=== PATIENT | male | born 1945 | race Caucasian/White ===

== ENCOUNTER 2017-11-02 14:42 | Inpatient (IN) ==
[2017-11-02] MEDS ORDERED: ENOXAPARIN 100 MG/ML SYRINGE SUBCUT STA (15:13)
[2017-11-02] MEDS ORDERED: ENOXAPARIN 100 MG/ML SYRINGE SUBCUT ONE (15:16)
[2017-11-02] MEDS ORDERED: NITROGLYCERIN DRIP 50 MG/250 ML BOTTLE IV SCH (15:30)
[2017-11-02 16:06] LABS: Basophils # 0.1 10*3/uL (0.0-0.2); Basophils % 0.6 % (0.0-0.8); Eosinophils # 1.2 10*3/uL (0.0-0.87); Eosinophils % 11.8 % (0.00-10.9); Hematocrit 39.4 VOL% (42.0-52.0); Hemoglobin 13.8 GM/DL (14.0-18.0); Immature Granulocytes % 0.6 %; Immature Granulocytes Absolute 0.06 #; Lymphocytes # 2.9 10*3/uL (1.4-4.0); Lymphocytes % 27.8 % (21.2-54.2); Mean Corpuscular Hemoglobin 30 PG (27-34); Mean Corpuscular Volume 85.3 FL (87-102); Mean Platelet Volume 10.3 FL (9.6-12.0); Monocytes # 0.6 10*3/uL (0.11-0.8); Neutrophils # 5.5 10*3/uL (1.4-7.4); Neutrophils % 53.2 % (38.7-73.9); Platelet Count 150 T/CUMM (130-400); Red Blood Count 4.62 MC/CUMM (3.8-5.5); Red Cell Distribution Width 12.9 % (9.3-17.3); White Blood Count 10.3 T/CUMM (4-12)
[2017-11-02 16:17] LABS: INR 1.1; PT Patient Result 11.1 SECS
[2017-11-02 16:32] LABS: Albumin 3.8 G/DL (3.4-5.0); Bilirubin,Total 0.5 MG/DL (0.2-1.0); Calcium 10.2 MG/DL (8.5-10.1); Osmolality,Calculated 284.5 MOS/KG (273-304); Potassium 4.6 MMOL/L (3.5-5.1); Total Protein 7.2 G/DL (6.4-8.3)
[2017-11-02 17:10] LABS: Eosinophils 10 % (0-10); Hypochromasia 1+; Lymphocytes 29 % (20-55); Platelet Estimate Adequate; Segmented Neutrophils 55 % (50-85); Total Cells Counted 100
[2017-11-02] MEDS ORDERED: MAGNESIUM SULF RIDER 4 GM in PREMIX 1 EACH IV PRN (18:15)
[2017-11-02] MEDS ORDERED: MAGNESIUM SULF RIDER 2 GM in PREMIX 1 EACH IV PRN (18:15)
[2017-11-02] MEDS ORDERED: NITROGLYCERIN 2% OINT 1 INCH/GM PACK TOP ONE (19:13)
[2017-11-02] MEDS ORDERED: MEPERIDINE 25 MG/1 ML VIAL IM PRN (21:41)
[2017-11-02 21:57] LABS: Troponin I Only < 0.015 NG/ML (0.00-0.045)
[2017-11-03] MEDS: NITROGLYCERIN 2% OINT 1 INCH/GM PACK TOP SCH ×4 (00:30→19:02)
[2017-11-03 02:06] LABS: Troponin I Only < 0.015 NG/ML (0.00-0.045)
[2017-11-03] MEDS ORDERED: ENOXAPARIN 80 MG/0.8 ML SYRINGE SUBCUT SCH (03:30)
[2017-11-03] MEDS ORDERED: ONDANSETRON 4 MG/2 ML VIAL IV PRN (10:20)
[2017-11-03] MEDS ORDERED: MORPHINE 2 MG/1 ML SYRINGE IV ONE (10:30)
[2017-11-03] MEDS ORDERED: MORPHINE 2 MG/1 ML SYRINGE ONE (10:32)
[2017-11-03] MEDS ORDERED: POTASSIUM CHLORIDE RIDER 10 MEQ in PREMIX 1 EACH IV PRN (10:56)
[2017-11-03] MEDS ORDERED: MAGNESIUM SULF RIDER 2 GM in PREMIX 1 EACH IV PRN (10:56)
[2017-11-03] MEDS ORDERED: diphenhydrAMINE CAP 25 MG CAPSULE PO ONE (10:56)
[2017-11-03] MEDS ORDERED: DIAZEPAM 5 MG TABLET PO ONE (10:56)
[2017-11-03] MEDS ORDERED: ASPIRIN 325 MG TABLET PO ONE (10:56)
[2017-11-03] MEDS ORDERED: MIDAZOLAM 2 MG/2 ML VIAL ONE (11:00)
[2017-11-03] MEDS ORDERED: SODIUM CHLORIDE 0.9% 1,000 ML IV SCH ×2 (11:00→12:30)
[2017-11-03] MEDS ORDERED: fentaNYL 100 MCG/2 ML VIAL ONE (11:00)
[2017-11-03] MEDS ORDERED: LIDOCAINE 1% 20 ML VIAL ONE (11:00)
[2017-11-03] MEDS ORDERED: hydrALAZINE 20 MG/1 ML VIAL ONE (11:23)
[2017-11-03] MEDS ORDERED: TIROFIBAN 5,000 MCG/100 ML PREMIX IV ONE (11:48)
[2017-11-03] MEDS ORDERED: TIROFIBAN 5,000 MCG/100 ML PREMIX IV SCH (11:55)
[2017-11-03] MEDS ORDERED: CLOPIDOGREL 300 MG TABLET ONE (12:05)
[2017-11-03] MEDS ORDERED: GLUCAGON 1 MG VIAL IM PRN (12:11)
[2017-11-03] MEDS ORDERED: DEXTROSE 50% 25 GM/50 ML VIAL IV PRN (12:11)
[2017-11-03] MEDS ORDERED: ZALEPLON 5 MG CAPSULE PO PRN (12:11)
[2017-11-03] MEDS ORDERED: cloNIDine 0.1 MG TABLET PO PRN (12:16)
[2017-11-03] MEDS ORDERED: ONDANSETRON 4 MG/2 ML VIAL IV ONE (12:22)
[2017-11-03] MEDS ORDERED: PANTOPRAZOLE 40 MG TABLET PO SCH (12:30)
[2017-11-03] MEDS ORDERED: PROMETHAZINE 25 MG TABLET PO ONE (13:52)
[2017-11-03] MEDS ORDERED: PROMETHAZINE 25 MG TABLET PO PRN (17:15)
[2017-11-03] MEDS ORDERED: PROMETHAZINE 25 MG SUPP RECTAL PRN (17:16)
[2017-11-03] MEDS ORDERED: ALUM/MAG/SIMETH/LIDO VISC 1:1 30 ML BOTTLE PO PRN (17:21)
[2017-11-03] MEDS ORDERED: LORazepam 2 MG/1 ML VIAL IV PRN (17:29)
[2017-11-03] MEDS: MEMANTINE 10 MG TABLET PO SCH ×2 (18:08→21:54)
[2017-11-03] MEDS: INSULIN REGULAR 100 UNIT/ML SUBCUT SCH ×2 (18:08→21:54)
[2017-11-03] MEDS ORDERED: ROSUVASTATIN 20 MG TABLET PO SCH (21:00)
[2017-11-03] MEDS: CARVEDILOL 25 MG TABLET PO SCH (21:54)
[2017-11-03] MEDS: FUROSEMIDE 40 MG TABLET PO SCH (21:54)
[2017-11-03] MEDS: PANTOPRAZOLE 40 MG TABLET PO SCH (21:54)
[2017-11-03] MEDS ORDERED: LORazepam 0.5 MG TABLET PO PRN (22:00)
[2017-11-04] MEDS: NITROGLYCERIN 2% OINT 1 INCH/GM PACK TOP SCH ×3 (01:11→12:42)
[2017-11-04 05:18] LABS: Basophils % 0.3 % (0.0-0.8); Eosinophils % 0.3 % (0.00-10.9); Hematocrit 37.8 VOL% (42.0-52.0); Hemoglobin 13.5 GM/DL (14.0-18.0); Immature Granulocytes % 0.7 %; Immature Granulocytes Absolute 0.11 #; Lymphocytes # 1.3 10*3/uL (1.4-4.0); Lymphocytes % 8.5 % (21.2-54.2); Mean Corpuscular HGB Conc 35.7 GM/DL (32-36); Mean Corpuscular Hemoglobin 30 PG (27-34); Mean Corpuscular Volume 83.4 FL (87-102); Mean Platelet Volume 10.6 FL (9.6-12.0); Monocytes % 6.6 % (1.7-12.7); Neutrophils # 12.5 10*3/uL (1.4-7.4); Neutrophils % 83.6 % (38.7-73.9); Platelet Count 144 T/CUMM (130-400); Red Blood Count 4.53 MC/CUMM (3.8-5.5); Red Cell Distribution Width 12.7 % (9.3-17.3)
[2017-11-04 05:50] LABS: Blood Urea Nitrogen 16 MG/DL (7-18); Calcium 9.5 MG/DL (8.5-10.1); Cholesterol 211 MG/DL (50-200); Glucose 202 MG/DL (74-106); HDL Cholesterol 37 MG/DL (40-60); Osmolality,Calculated 281.7 MOS/KG (273-304); Potassium 4.5 MMOL/L (3.5-5.1); Sodium 138 MMOL/L (136-145); Triglycerides 263 MG/DL (2-150); VLDL CHOLESTEROL 52.6 MG/DL
[2017-11-04 05:51] LABS: Troponin I Only 0.321 NG/ML (0.00-0.045)
[2017-11-04] MEDS: PANTOPRAZOLE 40 MG TABLET PO SCH (08:39)
[2017-11-04] MEDS: FUROSEMIDE 40 MG TABLET PO SCH (08:40)
[2017-11-04] MEDS: MEMANTINE 10 MG TABLET PO SCH (08:40)
[2017-11-04] MEDS: INSULIN REGULAR 100 UNIT/ML SUBCUT SCH ×3 (08:40→16:33)
[2017-11-04] MEDS: CARVEDILOL 25 MG TABLET PO SCH (08:40)
[2017-11-04] MEDS ORDERED: CLOPIDOGREL 75 MG TABLET PO SCH ×2 (09:00)
[2017-11-04] MEDS ORDERED: ASPIRIN EC 81 MG TABLET PO SCH (09:00)
[2017-11-04] MEDS ORDERED: LISINOPRIL 20 MG TABLET PO SCH (09:00)
[2017-11-04] MEDS ORDERED: DONEPEZIL 10 MG TABLET PO SCH (09:00)
[2017-11-04] MEDS ORDERED: NIACIN ER 500 MG TABLET PO SCH (09:00)
[2017-11-04] MEDS ORDERED: sitaGLIPtin 100 MG TABLET PO SCH (09:00)
[2017-11-04 13:08] VITALS: BP 139/61
== END 2017-11-04 16:25 | disposition home or self-care (01) | DRG 247 ==
LOC: EDUNIT# → EDBD → N.ED 14:42 → N.EDINP 18:15 → N.TELEN 19:18
PROVIDERS: ADMIT Internal Medicine Cardiovascular Disease; ATTEND Internal Medicine Cardiovascular Disease

== ENCOUNTER 2019-06-28 19:57 | Inpatient (IN) ==
[2019-06-28] MEDS ORDERED: INFLUENZA VIRUS VACCINE 0.5 ML SYRINGE IM ONE (21:32)
[2019-06-28] MEDS ORDERED: PNEUMOCOCCAL VACCINE (13 VALENT) 0.5 ML SYRINGE IM ONE (21:33)
[2019-06-28] MEDS ORDERED: ACETAMINOPHEN 325 MG TABLET PO PRN (21:42)
[2019-06-28] MEDS ORDERED: ALBUTEROL 2.5 MG/3 ML NEB RESP TX PRN (21:42)
[2019-06-28] MEDS ORDERED: ONDANSETRON 4 MG/2 ML VIAL IV PRN (21:42)
[2019-06-28 22:38] LABS: Troponin I 4.07 NG/ML (0.00-0.045)
[2019-06-28] MEDS ORDERED: MORPHINE 4 MG/1 ML VIAL IV PRN (22:38)
[2019-06-28] MEDS: LABETALOL 20 MG/4 ML SYRINGE IV PRN (23:11)
[2019-06-28] MEDS ORDERED: GLUCAGON 1 MG VIAL IM PRN (23:15)
[2019-06-28] MEDS ORDERED: DEXTROSE 50% 25 GM/50 ML VIAL IV PRN (23:15)
[2019-06-29 00:57] LABS: CKMB % 4.7 %
[2019-06-29 01:01] LABS: Troponin I 4.35 NG/ML (0.00-0.045)
[2019-06-29 05:32] LABS: Basophils % 0.3 % (0.0-0.8); Eosinophils # 0.3 10*3/uL (0.0-0.87); Eosinophils % 2.5 % (0.00-10.9); Hematocrit 36.6 VOL% (42.0-52.0); Hemoglobin 12.4 GM/DL (14.0-18.0); Immature Granulocytes % 0.6 %; Immature Granulocytes Absolute 0.08 #; Lymphocytes # 1.7 10*3/uL (1.4-4.0); Lymphocytes % 12.5 % (21.2-54.2); Mean Corpuscular HGB Conc 33.9 GM/DL (32-36); Mean Corpuscular Volume 88.6 FL (87-102); Mean Platelet Volume 10.2 FL (9.6-12.0); Monocytes % 7.3 % (1.7-12.7); Neutrophils % 76.8 % (38.7-73.9); Platelet Count 154 T/CUMM (130-400); Red Blood Count 4.13 MC/CUMM (3.8-5.5); Red Cell Distribution Width 13.4 % (9.3-17.3); White Blood Count 13.5 T/CUMM (4-12)
[2019-06-29 05:55] LABS: CKMB % 4.6 %
[2019-06-29 05:56] LABS: Troponin I 3.95 NG/ML (0.00-0.045)
[2019-06-29 05:57] LABS: Albumin 3.1 G/DL (3.4-5.0); Bilirubin,Total 1.2 MG/DL (0.2-1.0); Calcium 10.2 MG/DL (8.5-10.1); Osmolality,Calculated 279.7 MOS/KG (273-304); Total Protein 6.5 G/DL (6.4-8.3)
[2019-06-29] MEDS: cefTRIAXone 1,000 MG in SYRINGE 1 EACH IV SCH (06:15)
[2019-06-29] MEDS: LABETALOL 20 MG/4 ML SYRINGE IV PRN (06:16)
[2019-06-29] MEDS: AZITHROMYCIN INJ 500 MG in SODIUM CHLORIDE 0.9% 250 ML IV SCH (06:21)
[2019-06-29] MEDS: carvediloL 25 MG TABLET PO SCH ×2 (08:11→17:03)
[2019-06-29] MEDS: busPIRone 15 MG TABLET PO SCH ×2 (08:11→21:54)
[2019-06-29] MEDS: FUROSEMIDE 40 MG TABLET PO SCH ×2 (08:11→21:54)
[2019-06-29] MEDS: PANTOPRAZOLE 40 MG TABLET PO SCH (08:11)
[2019-06-29] MEDS: INSULIN REGULAR 100 UNIT/ML SUBCUT SCH ×4 (08:59→22:02)
[2019-06-29] MEDS ORDERED: ASPIRIN EC 325 MG TABLET PO SCH (09:00)
[2019-06-29] MEDS ORDERED: MEMANTINE DONEPEZIL PO SCH (09:00)
[2019-06-29] MEDS: CLOPIDOGREL 75 MG TABLET PO SCH (09:57)
[2019-06-29] MEDS: ENOXAPARIN 100 MG/ML SYRINGE SUBCUT SCH (09:57)
[2019-06-29] MEDS: NIACIN 500 MG TABLET PO SCH (10:01)
[2019-06-29] MEDS ORDERED: NITROGLYCERIN SL 0.4 MG TABLET SL PRN (10:18)
[2019-06-29] MEDS ORDERED: LISINOPRIL 20 MG TABLET PO SCH (10:30)
[2019-06-29] MEDS: NITROGLYCERIN 2% OINT 1 INCH/GM PACK TOP SCH ×2 (10:51→17:03)
[2019-06-29] MEDS ORDERED: amLODIPine 5 MG TABLET PO SCH (11:00)
[2019-06-29] MEDS ORDERED: SIMVASTATIN 10 MG TABLET PO SCH (21:00)
[2019-06-30] MEDS: NITROGLYCERIN 2% OINT 1 INCH/GM PACK TOP SCH ×2 (01:24→06:46)
[2019-06-30 04:49] LABS: Basophils # 0.1 10*3/uL (0.0-0.2); Basophils % 0.5 % (0.0-0.8); Eosinophils # 0.5 10*3/uL (0.0-0.87); Eosinophils % 4.6 % (0.00-10.9); Hemoglobin 11.2 GM/DL (14.0-18.0); Immature Granulocytes % 0.6 %; Immature Granulocytes Absolute 0.06 #; Lymphocytes % 18.5 % (21.2-54.2); Mean Corpuscular HGB Conc 33.9 GM/DL (32-36); Mean Corpuscular Volume 88.2 FL (87-102); Mean Platelet Volume 10.1 FL (9.6-12.0); Neutrophils % 65.8 % (38.7-73.9); Platelet Count 163 T/CUMM (130-400); Red Blood Count 3.74 MC/CUMM (3.8-5.5); White Blood Count 10.8 T/CUMM (4-12)
[2019-06-30 05:10] LABS: Calcium 10.4 MG/DL (8.5-10.1); Osmolality,Calculated 277.8 MOS/KG (273-304)
[2019-06-30] MEDS: AZITHROMYCIN INJ 500 MG in SODIUM CHLORIDE 0.9% 250 ML IV SCH (07:21)
[2019-06-30] MEDS: cefTRIAXone 1,000 MG in SYRINGE 1 EACH IV SCH (07:21)
[2019-06-30] MEDS ORDERED: amLODIPine 10 MG TABLET PO SCH (09:00)
[2019-06-30] MEDS ORDERED: ASPIRIN EC 81 MG TABLET PO SCH (09:00)
[2019-06-30] MEDS: INSULIN REGULAR 100 UNIT/ML SUBCUT SCH ×3 (10:08→16:06)
[2019-06-30] MEDS: busPIRone 15 MG TABLET PO SCH (10:09)
[2019-06-30] MEDS: ENOXAPARIN 100 MG/ML SYRINGE SUBCUT SCH (10:09)
[2019-06-30] MEDS: CLOPIDOGREL 75 MG TABLET PO SCH (10:10)
[2019-06-30] MEDS: PANTOPRAZOLE 40 MG TABLET PO SCH (10:10)
[2019-06-30] MEDS: carvediloL 25 MG TABLET PO SCH (10:10)
[2019-06-30] MEDS: NIACIN 500 MG TABLET PO SCH (10:12)
[2019-06-30] MEDS ORDERED: SODIUM CHLORIDE 0.9% 1,000 ML IV SCH (10:30)
[2019-06-30] MEDS ORDERED: ENOXAPARIN 40 MG/0.4 ML SYRINGE SUBCUT SCH (10:30)
[2019-06-30 16:24] VITALS: BP 119/61
== END 2019-06-30 16:50 | disposition home or self-care (01) | DRG 193 ==
LOC: N.ICU 21:13 → SUATTDRO 21:13 → N.TELES 06-29 17:48
PROVIDERS: ADMIT Internal Medicine; ATTEND Internal Medicine

== ENCOUNTER 2020-01-03 16:11 | Inpatient (IN) ==
[2020-01-03] MEDS ORDERED: ONDANSETRON 4 MG/2 ML VIAL IV STA (16:34)
[2020-01-03] MEDS ORDERED: NITROGLYCERIN 2% OINT 1 INCH/GM PACK TOP STA (16:34)
[2020-01-03] MEDS ORDERED: FAMOTIDINE 20 MG/2 ML VIAL IV STA (16:35)
[2020-01-03 17:09] LABS: Basophils # 0.1 10*3/uL (0.0-0.2); Basophils % 0.6 % (0.0-0.8); Eosinophils # 0.7 10*3/uL (0.0-0.87); Eosinophils % 6.5 % (0.00-10.9); Hematocrit 39.7 VOL% (42.0-52.0); Hemoglobin 13.3 GM/DL (14.0-18.0); Immature Granulocytes % 0.6 %; Immature Granulocytes Absolute 0.07 #; Lymphocytes # 1.5 10*3/uL (1.4-4.0); Lymphocytes % 13.8 % (21.2-54.2); Mean Corpuscular HGB Conc 33.5 GM/DL (32-36); Mean Corpuscular Volume 85.9 FL (87-102); Mean Platelet Volume 9.7 FL (9.6-12.0); Monocytes % 7.1 % (1.7-12.7); Neutrophils % 71.4 % (38.7-73.9); Platelet Count 202 T/CUMM (130-400); Red Blood Count 4.62 MC/CUMM (3.8-5.5); Red Cell Distribution Width 13.8 % (9.3-17.3); White Blood Count 11.1 T/CUMM (4-12)
[2020-01-03 17:28] LABS: INR 1.1; PT Patient Result 11.3 SECS (9.8-11.9); Partial Thromboplastin Time 32.6 SECS (23.9-33.8)
[2020-01-03 17:51] LABS: Alanine Aminotransferase 15 U/L (16-61); Albumin 3.4 G/DL (3.4-5.0); Alkaline Phosphatase 131 U/L (45-117); Aspartate Amino Transferase 18 U/L (0-37); Blood Urea Nitrogen 21 MG/DL (7-18); Calcium 10.5 MG/DL (8.5-10.1); Estimated Glom Filtration Rate 40 ML/MIN; Glucose 115 MG/DL (74-106); Osmolality,Calculated 269.4 MOS/KG (273-304); Total Protein 6.9 G/DL (6.4-8.3); Troponin I 0.023 NG/ML (0.00-0.045)
[2020-01-03] MEDS ORDERED: MORPHINE 4 MG/1 ML VIAL IV STA (17:56)
[2020-01-03] MEDS ORDERED: MORPHINE 4 MG/1 ML VIAL ONE (17:58)
[2020-01-03] MEDS ORDERED: cefTRIAXone 1,000 MG in SODIUM CHLORIDE 0.9% 100 ML IV STA (18:00)
[2020-01-03] MEDS ORDERED: FUROSEMIDE 20 MG/2 ML VIAL IV STA (18:05)
[2020-01-03] MEDS ORDERED: FUROSEMIDE 20 MG/2 ML VIAL ONE (18:06)
[2020-01-03] MEDS ORDERED: ENOXAPARIN 30 MG/0.3 ML SYRINGE SUBCUT STA (18:14)
[2020-01-03] MEDS ORDERED: ENOXAPARIN 60 MG/0.6 ML SYRINGE SUBCUT STA (18:35)
[2020-01-03] MEDS ORDERED: ENOXAPARIN 80 MG/0.8 ML SYRINGE SUBCUT ONE (18:37)
[2020-01-03] MEDS: ENOXAPARIN 40 MG/0.4 ML SYRINGE SUBCUT SCH (19:25)
[2020-01-03] MEDS ORDERED: DEXTROSE 50% 25 GM/50 ML SYRINGE IV PRN (21:01)
[2020-01-03] MEDS ORDERED: ACETAMINOPHEN 325 MG TABLET PO PRN (21:01)
[2020-01-03] MEDS ORDERED: GLUCAGON 1 MG VIAL IM PRN (21:01)
[2020-01-03 21:26] LABS: Ferritin 55.2 ng/ml (26-388)
[2020-01-03] MEDS ORDERED: AZITHROMYCIN INJ 500 MG in SODIUM CHLORIDE 0.9% 250 ML IV SCH (21:30)
[2020-01-03] MEDS ORDERED: LEVOFLOXACIN INJ 750 MG in PREMIX 1 EACH IV SCH (21:30)
[2020-01-03] MEDS: INSULIN REGULAR 100 UNIT/ML SUBCUT SCH (22:59)
[2020-01-03] MEDS: SODIUM CHLORIDE 0.45% 1,000 ML IV SCH (23:02)
[2020-01-04] MEDS ORDERED: ALBUTEROL 2.5 MG/3 ML NEB RESP TX SCH (01:00)
[2020-01-04] MEDS ORDERED: AZITHROMYCIN 250 MG TABLET PO ONE (01:00)
[2020-01-04] MEDS: ONDANSETRON 4 MG/2 ML VIAL IV PRN ×2 (01:36→05:36)
[2020-01-04 06:33] LABS: Basophils # 0.1 10*3/uL (0.0-0.2); Basophils % 0.8 % (0.0-0.8); Eosinophils # 0.6 10*3/uL (0.0-0.87); Eosinophils % 5.6 % (0.00-10.9); Hematocrit 40.6 VOL% (42.0-52.0); Hemoglobin 13.7 GM/DL (14.0-18.0); Immature Granulocytes % 0.7 %; Immature Granulocytes Absolute 0.07 #; Lymphocytes # 1.1 10*3/uL (1.4-4.0); Lymphocytes % 10.6 % (21.2-54.2); Mean Corpuscular HGB Conc 33.7 GM/DL (32-36); Mean Corpuscular Volume 85.3 FL (87-102); Mean Platelet Volume 9.8 FL (9.6-12.0); Monocytes % 7.1 % (1.7-12.7); Neutrophils % 75.2 % (38.7-73.9); Platelet Count 206 T/CUMM (130-400); Red Blood Count 4.76 MC/CUMM (3.8-5.5); Red Cell Distribution Width 13.8 % (9.3-17.3); White Blood Count 10.2 T/CUMM (4-12)
[2020-01-04 07:16] LABS: Calcium 10.5 MG/DL (8.5-10.1); Osmolality,Calculated 268.5 MOS/KG (273-304); Thyroid Stimulating Hormone 0.951 uIU/ml (0.358-3.74)
[2020-01-04] MEDS: PANTOPRAZOLE 40 MG TABLET PO SCH (09:24)
[2020-01-04] MEDS: INSULIN REGULAR 100 UNIT/ML SUBCUT SCH ×3 (09:33→16:08)
[2020-01-04] MEDS: SODIUM CHLORIDE 0.45% 1,000 ML IV SCH (11:47)
[2020-01-04] MEDS: ENOXAPARIN 40 MG/0.4 ML SYRINGE SUBCUT SCH (17:32)
[2020-01-04] MEDS ORDERED: cefTRIAXone 1,000 MG in SYRINGE 1 EACH IV SCH (18:00)
[2020-01-05] MEDS: INSULIN REGULAR 100 UNIT/ML SUBCUT SCH ×3 (00:20→12:23)
[2020-01-05] MEDS: PANTOPRAZOLE 40 MG TABLET PO SCH (08:50)
[2020-01-05] MEDS: SODIUM CHLORIDE 0.45% 1,000 ML IV SCH ×2 (08:50→14:35)
[2020-01-05] MEDS ORDERED: AZITHROMYCIN 250 MG TABLET PO SCH (09:00)
[2020-01-05 11:31] VITALS: BP 167/79
== END 2020-01-05 15:57 | disposition home health service (06) | DRG 194 ==
LOC: EDBD → EDUNIT# → N.ED 16:11 → N.EDINP 21:01 → N.2E 01-04 01:09
PROVIDERS: ADMIT Family Medicine; ATTEND Family Medicine

== ENCOUNTER 2022-06-24 17:32 | Observation (INO) ==
[2022-06-24] MEDS ORDERED: hydrALAZINE 20 MG/1 ML VIAL IV PRN (20:16)
[2022-06-24] MEDS ORDERED: ONDANSETRON 4 MG/2 ML VIAL IV PRN (20:16)
[2022-06-24] MEDS ORDERED: ACETAMINOPHEN 325 MG TABLET PO PRN (20:16)
[2022-06-24] MEDS ORDERED: MAGNESIUM SULF RIDER 4 GM/100 ML PREMIX IV PRN (20:16)
[2022-06-24] MEDS ORDERED: GLUCAGON 1 MG VIAL IM PRN (20:16)
[2022-06-24] MEDS ORDERED: MAGNESIUM SULF RIDER 2 GM/50 ML PREMIX IV PRN (20:16)
[2022-06-24] MEDS ORDERED: DEXTROSE 10% 250 ML BAG IV PRN (20:49)
[2022-06-24] MEDS ORDERED: ENOXAPARIN 40 MG/0.4 ML SYRINGE SUBCUT SCH (21:00)
[2022-06-24] MEDS: INSULIN LISPRO 100 UNIT/ML SUBCUT SCH (21:36)
[2022-06-25 06:03] LABS: Basophils # 0.1 10*3/uL (0.0-0.2); Basophils % 0.8 % (0.0-0.8); Eosinophils # 0.5 10*3/uL (0.0-0.87); Eosinophils % 5.3 % (0.00-10.9); Hematocrit 34.5 VOL% (42.0-52.0); Hemoglobin 11.4 GM/DL (14.0-18.0); Immature Granulocytes % 0.7 %; Immature Granulocytes Absolute 0.06 #; Lymphocytes # 1.6 10*3/uL (1.4-4.0); Lymphocytes % 18.2 % (21.2-54.2); Mean Corpuscular Volume 88.9 FL (87-102); Mean Platelet Volume 9.9 FL (9.6-12.0); Monocytes # 0.7 10*3/uL (0.11-0.8); Monocytes % 7.3 % (1.7-12.7); Neutrophils % 67.7 % (38.7-73.9); Platelet Count 219 T/CUMM (130-400); Red Blood Count 3.88 MC/CUMM (3.8-5.5); Red Cell Distribution Width 13.4 % (9.3-17.3); White Blood Count 8.9 T/CUMM (4-12)
[2022-06-25 06:35] LABS: Albumin 3.4 G/DL (3.4-5.0); Bilirubin,Total 0.7 MG/DL (0.20-1.00); Calcium 10.3 MG/DL (8.5-10.1); Osmolality,Calculated 279.7 MOS/KG (273-304); Potassium 4.3 MMOL/L (3.5-5.1); Risk Ratio 3.43; Thyroid Stimulating Hormone 0.465 uIU/ml (0.358-3.74); Total Protein 6.9 G/DL (6.4-8.2); VLDL Cholesterol 28.6 MG/DL
[2022-06-25] MEDS ORDERED: MAGNESIUM SULF RIDER 2 GM/50 ML PREMIX IV ONE (07:28)
[2022-06-25] MEDS ORDERED: FUROSEMIDE 40 MG/4 ML VIAL IV SCH (08:00)
[2022-06-25] MEDS: INSULIN LISPRO 100 UNIT/ML SUBCUT SCH ×3 (08:10→15:48)
[2022-06-25] MEDS ORDERED: PANTOPRAZOLE 40 MG TABLET PO SCH (09:00)
[2022-06-25] MEDS ORDERED: AZITHROMYCIN 250 MG TABLET PO ONE (15:37)
[2022-06-25 15:58] VITALS: BP 120/61
[2022-06-25] MEDS ORDERED: FUROSEMIDE 40 MG TABLET PO SCH (16:00)
[2022-06-26] MEDS ORDERED: AZITHROMYCIN 250 MG TABLET PO SCH (09:00)
== END 2022-06-25 16:47 | disposition home or self-care (01) ==
LOC: SUATTDRO 20:11 → N.TELES 20:11 → INTOOBSV 20:11
PROVIDERS: ADMIT Internal Medicine; ATTEND Internal Medicine